=== PATIENT | female | born 1990 | race Caucasian/White ===

== ENCOUNTER 2022-02-24 03:11 | Emergency (ER) | payer MEDICAID ==
[2022-02-24] MEDS ORDERED: Azithromycin 500 MG Tab PO STA (04:38)
== END 2022-02-24 04:47 | disposition home or self-care (01) ==
LOC: FB.ED 03:11
DX: K04.7 Periapical abscess without sinus (principal); K08.89 Other specified disorders of teeth and supporting structures; F41.9 Anxiety disorder, unspecified; F32.A Depression, unspecified; Z79.899 Other long term (current) drug therapy; Z88.0 Allergy status to penicillin; Z88.1 Allergy status to other antibiotic agents
CPT/HCPCS: 87651; 99283; A9270

== ENCOUNTER 2022-11-25 19:36 | Emergency (ER) | payer MEDICAID ==
[2022-11-25 21:11] LABS: BASOPHILS ABSOLUTE AUTO 0.1 x10-3/uL (0.0-0.1); BASOPHILS PERCENT AUTO 1.4 % (0.2-1.5); EOSINOPHILS ABSOLUTE AUTO 0.2 x10-3/uL (0.0-0.8); EOSINOPHILS PERCENT AUTO 3.6 % (0.6-8.1); HEMATOCRIT 38.4 % (34.2-48.2); HEMOGLOBIN 13.2 g/dL (11.4-15.5); LYMPHOCYTES ABSOLUTE AUTO 2.3 x10-3/uL (1.0-4.4); LYMPHOCYTES PERCENT AUTO 44.2 % (18.4-52.1); MEAN CORPUSCULAR HEMOGLOBIN 30.6 pg (23.9-33.9); MEAN CORPUSCULAR HGB CONC 34.2 g/dL (31.9-34.8); MEAN CORPUSCULAR VOLUME 89.3 fL (76.7-100.5); MONOCYTES ABSOLUTE AUTO 0.6 x10-3/uL (0.3-1.0); MONOCYTES PERCENT AUTO 11.3 % (4.4-15.7); NEUTROPHILS PERCENT AUTO 39.5 % (30.8-76.2); PLATELET COUNT,PLT 245 x10(3)uL (151-488); RED CELL DISTRIBUTION WIDTH 13.3 % (12.3-16.5); WHITE BLOOD CELL COUNT,WBC 5.1 x10-3/uL (3.0-10.3)
[2022-11-25 21:12] LABS: BLOOD UREA NITROGEN,BUN 8 mg/dL (7-18); CALCIUM 8.9 mg/dL (8.6-10.2); CARBON DIOXIDE,CO2 27 mmol/L (21-32); CHLORIDE,CL 102 mmol/L (100-110); CREATININE 0.5 mg/dL (0.55-1.02); EST CRCL DRUG DOSING (CG) 148.04 mL/min; ESTIMATED GFR 129 mL/min (>60); GLUCOSE RANDOM 90 mg/dL (80-116); SODIUM,NA 135 mmol/L (135-145)
[2022-11-25] MEDS ORDERED: Sodium Chloride 0.9% 1,000 ML IV SCH (21:15)
[2022-11-25 21:21] LABS: POTASSIUM,K 4.9 mmol/L (3.5-5.3)
[2022-11-25] MEDS: Lactated Ringers 1,000 ML IV SCH (21:28)
[2022-11-25] MEDS: Pantoprazole 40 MG Vial IVPUSH ONE (22:09)
== END 2022-11-25 22:37 | disposition home or self-care (01) ==
LOC: FB.ED 19:36
DX: E86.0 Dehydration (principal); F50.2 Bulimia nervosa; F17.210 Nicotine dependence, cigarettes, uncomplicated; Z86.16 Personal history of COVID-19; K21.9 Gastro-esophageal reflux disease without esophagitis; Z79.899 Other long term (current) drug therapy; Z88.0 Allergy status to penicillin; Z88.2 Allergy status to sulfonamides
CPT/HCPCS: 36415; 80048; 85025; 87651; 93005; 96361; 96374; 99284; C9113; J7120

== ENCOUNTER 2023-10-14 03:48 | Emergency (ER) | payer MEDICAID ==
[2023-10-14] MEDS ORDERED: Sodium Chloride 0.9% 10 ML Syringe FLUSH PRN (04:24)
[2023-10-14] MEDS: Sodium Chloride 0.9% 1,000 ML IV ONE (04:31)
[2023-10-14] MEDS: Ondansetron 4 MG/2 ML SDV IVPUSH ONE (04:34)
[2023-10-14 04:37] LABS: BASOPHILS ABSOLUTE AUTO 0.1 x10-3/uL (0.0-0.1); BASOPHILS PERCENT AUTO 0.9 % (0.2-1.5); EOSINOPHILS ABSOLUTE AUTO 0.4 x10-3/uL (0.0-0.8); EOSINOPHILS PERCENT AUTO 4.4 % (0.6-8.1); HEMATOCRIT 41.9 % (34.2-48.2); LYMPHOCYTES ABSOLUTE AUTO 2.6 x10-3/uL (1.0-4.4); LYMPHOCYTES PERCENT AUTO 31.8 % (18.4-52.1); MEAN CORPUSCULAR HEMOGLOBIN 30.2 pg (23.9-33.9); MEAN CORPUSCULAR HGB CONC 33.5 g/dL (31.9-34.8); MEAN CORPUSCULAR VOLUME 90.1 fL (76.7-100.5); MEAN PLATELET VOLUME 7.9 fL (7.1-12.4); MONOCYTES ABSOLUTE AUTO 0.4 x10-3/uL (0.3-1.0); MONOCYTES PERCENT AUTO 5.5 % (4.4-15.7); NEUTROPHILS ABSOLUTE AUTO 4.6 x10-3/uL (1.5-6.3); NEUTROPHILS PERCENT AUTO 57.4 % (30.8-76.2); PLATELET COUNT,PLT 279 x10(3)uL (151-488); RED BLOOD CELL COUNT 4.65 x10(6)uL (3.60-5.20); RED CELL DISTRIBUTION WIDTH 12.3 % (12.3-16.5)
[2023-10-14 04:41] LABS: BLOOD UREA NITROGEN,BUN 6 mg/dL (7-18); BUN/CREATININE RATIO 7.5 (9-20); CALCIUM 9.1 mg/dL (8.6-10.2); CARBON DIOXIDE,CO2 26 mmol/L (21-32); CHLORIDE,CL 103 mmol/L (100-110); CREATININE 0.8 mg/dL (0.55-1.02); ESTIMATED GFR 101 mL/min (>60); GLUCOSE RANDOM 90 mg/dL (80-116); POTASSIUM,K 3.4 mmol/L (3.5-5.3); SODIUM,NA 140 mmol/L (135-145)
[2023-10-14 04:47] LABS: A/G RATIO 1.2; ALANINE AMINOTRANSFERASE,ALT 17 U/L (12-36); ALBUMIN 3.9 g/dL (3.5-5.2); ALKALINE PHOSPHATASE 59 IU/L (56-112); ASPARTATE AMNIOTRANSFERASE,AST 14 IU/L (5-25); BILIRUBIN TOTAL 0.6 mg/dL (0.1-1.3); MAGNESIUM 1.9 mg/dL (1.8-2.5); PROTEIN TOTAL,TP 7.2 g/dL (6.0-8.0)
[2023-10-14 05:34] LABS: BILIRUBIN,URINE NEGATIVE (NEGATIVE); GLUCOSE,URINE NORMAL (NORMAL); KETONES,URINE NEGATIVE (NEGATIVE); LEUKOCYTE ESTERASE,URINE NEGATIVE (NEGATIVE); NITRITE,URINE NEGATIVE (NEGATIVE); OCCULT BLOOD,URINE NEGATIVE (NEGATIVE); PROTEIN,URINE NEGATIVE (NEGATIVE); UROBILINOGEN,URINE NORMAL (NEGATIVE)
[2023-10-14] MEDS: Potassium Chloride 20 MEQ Tab.ER PO ONE (05:36)
[2023-10-14 05:40] LABS: COLOR,URINE YELLOW (YELLOW)
[2023-10-14 05:41] LABS: APPEARANCE,URINE CLEAR (CLEAR); BACTERIA,URINE FEW (NS); RBC,URINE 0-5 (0-5); SQUAMOUS EPITHELIAL CELLS,UR FEW (NS,R,O); WBC,URINE 0-5 (0-5)
== END 2023-10-14 06:00 | disposition home or self-care (01) ==
LOC: FB.ED 03:48 → SUPCPDRO 03:48 → FB.ED 06:00
DX: R11.2 Nausea with vomiting, unspecified (principal); T38.3X5A Adverse effect of insulin and oral hypoglycemic [antidiabetic] drugs, initial encounter; E86.0 Dehydration; F41.9 Anxiety disorder, unspecified; E87.6 Hypokalemia; K21.9 Gastro-esophageal reflux disease without esophagitis; Z88.0 Allergy status to penicillin; Z88.2 Allergy status to sulfonamides; Z79.84 Long term (current) use of oral hypoglycemic drugs; Z79.899 Other long term (current) drug therapy; Z86.16 Personal history of COVID-19; Z90.49 Acquired absence of other specified parts of digestive tract
CPT/HCPCS: 36415; 80053; 81001; 81025; 82947; 83735; 84484; 85025; 93005; 96361; 96374; 99285-25; A9270-GY; J2405; J7030